=== PATIENT | male | born 1965 | race Caucasian/White ===

== ENCOUNTER 2017-08-31 08:18 | Emergency (ER) | payer OTHER ==
[2017-08-31] MEDS ORDERED: cefTRIAXone VIAL(*) 250 MG VIAL IM ONE (08:40)
[2017-08-31] MEDS ORDERED: Lidocaine 1% INJ* 10 MG/ML 30 ML SDV INJ ONE (08:41)
[2017-08-31] MEDS ORDERED: Azithromycin TAB* 250 MG PO ONE (08:42)
[2017-08-31] MEDS ORDERED: Ondansetron ODT TAB* 4 MG PO ONE (08:43)
[2017-08-31 08:47] VITALS: BP 126/89
--- NOTE | 2017-09-07 08:58 | UC ---
Fletcher Pérez Nilda, scribed for Ashley Villatoro MD on 08/31/17 at 0859 . Skin Complaint HPI - HPI Summary HPI Summary: This patient is a 52 year old M presenting to [facility] with a chief complaint of a tick that was found on his left flank this morning. Patient is unsure how long the tick has been on him though he notes that he was doing yard work two days ago. Patient reports that he feels healthy otherwise. The tick was removed prior to my evuation in his room here. - History of Current Complaint Chief Complaint: U[employer]kin Time Seen by Provider: 08/31/17 08:49 Stated Complaint: TICK BITE Hx Obtained From: Patient Onset/Duration: Sudden Onset, Lasting Days Alleviating Factor(s): Other - tick removal Associated Signs & Symptoms: Positive: Negative - Allergy/Home Medications Allergies/Adverse Reactions: Allergies Allergy/AdvReac Type Severity Reaction Status Date / Time Penicillins [PCN] Allergy Unknown Unknown Verified 08/31/17 08:43 Reaction Details Review of Systems Constitutional: Negative Skin: Other - tick on left flank (resolved) Eyes: Negative ENT: Negative Respiratory: Negative Cardiovascular: Negative Gastrointestinal: Negative Genitourinary: Negative Motor: Negative, Other - tick as per hpi Neurovascular: Negative Musculoskeletal: Negative Neurological: Negative Psychological: Negative Is Patient Immunocompromised?: No All Other Systems Reviewed And Are Negative: Yes PMH/Surg Hx/FS Hx/Imm Hx - Surgical History Surgical History: Yes Surgery Procedure, Year, and Place: foot surgery - Family History Known Family History: Positive: Hypertension, Diabetes Family History: no cardiovascular issues in family lineage reported - Social History Alcohol Use: Occasionally Substance Use Type: None Smoking Status (MU): Never Smoked Tobacco Physical Exam Triage Information Reviewed: Yes Appearance: Well-Appearing Vital Signs: Initial Vital Signs Temp 98 F 08/31/17 08:45 Pulse 70 08/31/17 08:45 Resp 18 08/31/17 08:45 BP 126/89 08/31/17 08:45 Pulse Ox 99 08/31/17 08:45 Vital Signs Reviewed: Yes Eye Exam: Normal ENT Exam: Normal Respiratory Exam: Normal - no dyspnea, no tachypnea, normal respiratory rate Cardiovascular Exam: Normal - Heart rate regular, good general skin color, good capillary refill Abdominal Exam: Normal Abdomen Description: Positive: Nontender, No Organomegaly, Soft Bowel Sounds: Positive: Present Musculoskeletal Exam: Normal Musculoskeletal: Positive: Strength Intact Neurological Exam: Normal - nonfocal, grossly intact Psychological Exam: Normal - conversing easily and appropriately Course/Dx - Course Course Of Treatment: No new problems in CCC. There is a red area at site of tick bite, no archana purulence or crepitus. Tick appears c/w deer tick, mild - mod engorged. We d/x tx tick bite and cdc recommendations. However, [place], and pt is very concerned about lyme dz, and wishes for full tx. [place] in [place], and this is not his only recent bite. D/w risks / benefits abx, and general challenges with lyme issue(s), and d/w f/u with pcp. questions answered as posed to the best of my ability. - Diagnoses Provider Diagnoses: tick bite. possible lyme Discharge - Discharge Plan Condition: Stable Disposition: HOME Prescriptions: DOXYcycline CAP(*) [DOXYcycline 100MG CAP(*)] 100 mg PO BID #[id number] cap Patient Education Materials: Tick Bite (ED) Referrals: Chico Seay MD [Primary Care Provider] - Additional Instructions: Please follow up with Dr. Seay per routine. Seek medical attention sooner for worse or new problems in the meantime. The documentation as recorded by the Fltecher barrera Nilda accurately reflects the service I personally performed and the decisions made by me, Ashley Villatoro MD.
== END 2017-08-31 09:08 | disposition home or self-care (01) ==
LOC: UCEAST 08:18
DX: S30.861A Insect bite (nonvenomous) of abdominal wall, initial encounter (principal); W57.XXXA Bitten or stung by nonvenomous insect and other nonvenomous arthropods, initial encounter; Y93.9 Activity, unspecified; Y92.9 Unspecified place or not applicable; Z88.0 Allergy status to penicillin
CPT/HCPCS: 99211; G0463; J2001